=== PATIENT | male | born 2000 | race Caucasian/White ===

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

== ENCOUNTER 2023-10-28 20:16 | Emergency (ER) | payer SELFPAY ==
[~2023-10-28] VITALS: Ht 172.7 cm; Wt 56.8 kg
[2023-10-28 20:39] VITALS: TEMP 97.6
[2023-10-28] MEDS ORDERED: CEPHALEXIN500 M1 PO (22:27)
[2023-10-28 22:39] VITALS: BP 119/87; PULSE 67
== END 2023-10-28 22:39 | disposition home or self-care (01) ==
LOC: COL.ER 20:16
DX: S61.012A Laceration without foreign body of left thumb without damage to nail, initial encounter (principal); W27.8XXA Contact with other nonpowered hand tool, initial encounter